=== PATIENT | female | born 1980 | race Caucasian/White ===

== ENCOUNTER 2016-12-17 08:07 | Day surgery (SDC) | payer OTHER ==
[2016-12-16 08:56] VITALS: BMI 33.1
[2016-12-17] MEDS ORDERED: ALBUTEROL SO4 6.7 GM HFA INHALER IH ONE (10:26)
[2016-12-17] MEDS ORDERED: PROPOFOL 20 ML ONE (10:26)
[2016-12-17] MEDS ORDERED: MIDAZOLAM HCL 2 MG/2 ML SINGLE DOSE VIAL ONE (10:27)
--- NOTE | 2016-12-17 10:31 | HP ---
History & Physical Update - History History: No Change - Physical Physical: No Change - Assessment Assessment: No Change - Plan Plan: No Change
[2016-12-17] MEDS ORDERED: BUPIVACAINE HCL/PF 0.5% (5MG/ML) 10 ML VIAL IJ ONE (10:34)
[2016-12-17] MEDS ORDERED: BUPIVACAINE HCL/PF 0.5% (5MG/ML) 10 ML VIAL ONE (10:37)
[2016-12-17] MEDS ORDERED: ceFAZolin SODIUM 1 GM VIAL IVPB ONE (10:54)
[2016-12-17] MEDS ORDERED: ePHEDrine SULFATE 50 MG/1 ML AMPULE ONE (10:56)
[2016-12-17] MEDS ORDERED: ceFAZolin SODIUM 1 GM VIAL ONE (11:06)
[2016-12-17] MEDS ORDERED: DEXAMETHASONE SOD PHOSPHATE 4 MG/1 ML VIAL ONE (11:06)
[2016-12-17] MEDS ORDERED: KETOROLAC TROMETHAMINE 30 MG/1 ML VIAL ONE (11:12)
[2016-12-17] MEDS ORDERED: PROMETHAZINE HCL 25 MG/1 ML VIAL IVPUSH PRN (11:37)
[2016-12-17] MEDS ORDERED: oxyCODONE HCL 5 MG TABLET PO PRN (11:37)
[2016-12-17] MEDS ORDERED: ONDANSETRON 4 MG/2 ML VIAL IVPUSH PRN (11:37)
[2016-12-17] MEDS ORDERED: LACTATED RINGERS SOLUTION 1,000 ML IV SCH (11:45)
--- NOTE | 2016-12-17 11:49 | OP ---
Operative Note - Note: Operative Date: 12/17/16 Pre-Operative Diagnosis: midback mass Operation: Excision, midback mass Implants: fibrfatty submuscular mass Post-Operative Diagnosis: Same as Pre-op Surgeon: Johny Ko Anesthesiologist/CHILD DAY CARE TEACHER: Win Martinez Anesthesia: General (LMA) Specimens Removed: back mass/lipoma Estimated Blood Loss (mls): 2 Operative Report Dictated: Yes
--- NOTE | 2016-12-17 12:19 | OP ---
DATE OF OPERATION: 12/17/2016 PROCEDURE: Excision of left midback mass/lipoma. PREOPERATIVE DIAGNOSIS: Left midback mass/lipoma. POSTOPERATIVE DIAGNOSIS: Left midback mass/lipoma. SURGEON: Johny Ko MD ANESTHESIA: General by laryngeal mask airway. DESCRIPTION OF PROCEDURE: This is a 36-year-old female who presents with a tender, painful mass of the left midback towards the flank. On physical exam, the patient has a 5-cm, ill-defined mass at the left costovertebral angle for which an MRI showed a fibrofatty mass under the paraspinal muscle, so the patient was advised excisional biopsy of the mass, and consent was obtained after discussing the risks, benefits, and alternatives to the procedure. The patient was brought to the operating room and placed in supine position. General anesthesia by laryngeal mask airway was administered. The patient was then placed in right lateral decubitus position. The operative site was prepped and draped in the usual sterile fashion. Using 0.5% Marcaine, local anesthesia was administered to both incision sites. A 5-cm oblique incision following the skin crease was made using scalpel blade No. 15 with dissection carried down to subcutaneous tissue. Further dissection using Bovie cautery was done until the deep Franklyn fascia was entered then exposed the flank muscle for which the mass was palpated. The flank muscle was split using muscle splitting incision. The fibrofatty mass was exposed. This was dissected bluntly using the surgeon's digit combined with Bovie cautery dissection of its attachment to the rib cage. The mass was noted to be about 6 x 5 x 3 cm in size or volume. The operative cavity was inspected, and hemostasis was achieved using Bovie electrocautery. The wound was then closed with interrupted Vicryl 3-0 suture for the subcutaneous layer, interrupted Vicryl 3-0 suture dermis, and continuous Biosyn 4-0 suture for the subcuticular layer. The wound closure was reinforced with Steri-Strips and covered with sterile dressing. The patient was then placed back in supine position and successfully extubated. The patient was transferred to the post anesthesia care unit in satisfactory condition. ESTIMATED BLOOD LOSS: About 2 mL. WOUND CLASS: Clean. Ellie [id number]
[2016-12-17 13:13] VITALS: PULSE 80
[2016-12-17 13:14] VITALS: TEMP 98.2
[2016-12-17 14:41] VITALS: BP 103/54
--- NOTE | 2016-12-18 14:12 | PATH ---
Surgical Pathology Report Patient Name: SHANTAL NELSON [facility]. Rec. #: [id number] /Age/Gender: 1980 (Age: 36) / F Account: [id number] Location: [facility] SURGICAL Taken: 12/17/2016 Received: 12/17/2016 Reported: 12/18/2016 Physicians: Johny Ko M.D. Specimen(s) Received MASS OF LEFT MID BACK Clinical History Lipoma mid back Final Diagnosis SOFT TISSUE, LEFT MID BACK, MASS, EXCISION: MATURE BENIGN ADIPOSE TISSUE CONSISTENT WITH LIPOMA. Electronically Signed Arley So M.D. Gross Description Received in formalin labeled "left mid back mass" is a 6.8 x 5.0 x 3.0 cm portion of yellow, lobulated adipose tissue. Sectioning reveals homogeneous yellow, smooth fat. No areas of hemorrhage or necrosis are identified. [employer] Sales Executive sections are submitted in 3 cassettes. /12/17/2016 saudi/12/17/2016
== END 2016-12-17 14:01 | disposition home or self-care (01) ==
LOC: JASU-SURG 08:07
PROVIDERS: ATTEND Surgery
PROC: 0KBG0ZZ Excision of Left Trunk Muscle, Open Approach (ICD-10-PCS; principal; 2016-12-17 09:30)
DX: D17.1 Benign lipomatous neoplasm of skin and subcutaneous tissue of trunk (principal)
CPT/HCPCS: 84703; 88304-TC; 94760

== ENCOUNTER 2017-03-04 23:28 | Emergency (ER) | payer OTHER ==
--- NOTE | 2017-03-05 00:38 | PDOC ---
History of Present Illness - General Chief Complaint: Urinary Problem Stated Complaint: URINARY PROBLEM Time Seen by Provider: 03/05/17 00:38 History Source: Patient Exam Limitations: No Limitations - History of Present Illness Initial Comments: 03/05/17 00:59 Patient with history of UTI presents with complaint of frequency urgency dysuria for the last 3 weeks. States she has not been able to see her primary care physician for treatment. Denies vomiting or fever. LMP was several weeks ago. Does not believe she is currently . Past History - Past Medical History Allergies/Adverse Reactions: Allergies Allergy/AdvReac Type Severity Reaction Status Date / Time No Known Allergies Allergy Verified 03/05/17 00:41 Home Medications: Ambulatory Orders Ibuprofen 1 tab PO TID PRN #30 tablet 12/17/16 Ibuprofen 800 mg PO TID #30 tablet 03/05/17 Levofloxacin [Levaquin -] 500 mg PO DAILY #4 tablet 03/05/17 Anemia: Yes Asthma: Yes (last attack 07/2013) Cancer: No Cardiac Disorders: No CVA: No COPD: No CHF: No Dementia: No Diabetes: No GI Disorders: No Disorders: No HTN: Yes (w/ 1st ) Hypercholesterolemia: No Liver Disease: No Seizures: No Thyroid Disease: No - Surgical History Orthopedic Surgery: Yes (left ankle surgery) - Reproductive History (#): 6 Para: 5 - Psycho/Social/Smoking Cessation Hx Anxiety: No Suicidal Ideation: No Smoking History: Never smoked Have you smoked in the past 12 months: No Hx Alcohol Use: No Drug/Substance Use Hx: No Substance Use Type: None Hx Substance Use Treatment: No Review of Systems - Review of Systems Able to Perform ROS?: Yes Is the patient limited Korean proficient: No Constitutional: Yes: Symptoms Reported, See HPI. No: Chills, Diaphoresis, Fever , Loss of Appetite, Malaise, Night Sweats, Weakness, Weight Stable HEENTM: Yes: Symptoms Reported, See HPI. No: Eye Pain, Blurred Vision, Tearing , Recent change in vision, Double Vision, Ear Pain, Ocular Prothesis, Ear Discharge, Nose Pain, Nose Congestion, Tinnitus Respiratory: Yes: Symptoms reported, See HPI. No: Cough, Orthopnea, Shortness of Breath, SOB with Exertion, SOB at Rest, Productive cough Cardiac (ROS): Yes: Symptoms Reported, See HPI. No: Chest Pain, Edema, Irregular Heart Rate, Lightheadedness, Palpitations, Syncope ABD/GI: Yes: Symptoms Reported, See HPI. No: Abdominal Distended, Abd. Pain w/ defecation, Blood Streaked Bowels, Constipated, Diarrhea : Yes: Symptoms Reported, See HPI, Burning, Dysuria, Frequency, Flank Pain. No: Discharge, Hematuria, Incontinence, Pain, Urgency Musculoskeletal: Yes: Symptoms Reported, See HPI. No: Back Pain, Gout, Joint Pain, Joint Swelling Integumentary: Yes: Symptoms Reported, See HPI. No: Bruising, Change in Color, Change in Hair/Nails, Flushing, Lesions, Lumps Neurological: Yes: Symptoms reported, See HPI. No: Headache, Numbness, Paresthesia, Pre-Existing Deficit, Seizure Psychiatric: No: Anxiety, Depression, Frequent Crying, Stressors, Sleep Pattern Change Endocrine: Yes: Symptoms Reported, See HPI. No: Excessive Sweating, Flushing, Intolerance to Cold, Intolerance to Heat, Increased Hunger, Increased Thirst, Increased Urine Hematologic/Lymphatic: Yes: Symptoms Reported, See HPI. No: Anemia, Blood Clots , Easy Bleeding, Easy Bruising, Bleeding Diathesis, Lymph Node Abnormalities *Physical Exam - Physical Exam Comments: 03/05/17 00:57 *Physical Exam General Appearance: Yes: Appropriately Dressed. No: Apparent Distress, Intoxicated HEENT: positive: EOMI, DAISY, Normal ENT Inspection, Normal Voice, TMs Normal, Pharynx Normal. negative: Pale Conjunctivae, Photophobia, Scleral Icterus (R), Scleral Icterus (L) Neck: positive: Trachea midline, Normal Thyroid, Supple. negative: Tender, Rigid, Carotid bruit, Stridor, Lymphadenopathy (R), Lymphadenopathy (L), Thyromegaly Respiratory/Chest: positive: Lungs Clear, Normal Breath Sounds. negative: Chest Tender, Respiratory Distress, Accessory Muscle Use, Labored Respiration, RES, Crackles, Rales, Rhonchi, Stridor, Wheezing, Dullness Cardiovascular: positive: Regular Rhythm, Regular Rate, S1, S2. negative: Edema , JVD, Murmur, Bradycardia, Tachycardia Vascular Pulses: Dorsalis-Pedis (R): 2+, Doralis-Pedis (L): 2+ Gastrointestinal/Abdominal: positive: Normal Bowel Sounds, Flat, Soft. negative : Tender, Organomegaly, Pulsatile Mass, Increased Bowel Sounds, Decreased BS, Distended, Guarding, Rebound, Hernia, Hepatomegaly, Spleenomegaly Lymphatic: negative: Adenopathy, Tenderness Musculoskeletal: positive: Normal Inspection. negative: CVA Tenderness, Decreased Range of Motion Extremity: positive: Normal Capillary Refill, Normal Inspection, Normal Range of Motion, Pelvis Stable. negative: Tender, Pedal Edema, Swelling, Erythema Integumentary: positive: Normal Color, Dry, Warm. negative: Cyanotic, Erythema , Jaundice, Rash Neurologic: positive: plant security guard II-XII NML intact, Fully Oriented, Alert, Normal Mood/ Affect, Motor Strength 5/5. negative: EOM Palsy, Facial Droop, Sensory Deficit Medical Decision Making - Medical Decision Making 03/05/17 01:27 Dr. Cardenas: The scribe's documentation has been prepared under my direction and personally reviewed by me in its entirery. I confirm that the note above accurately reflects all work, treatment, procedures, and medical decision making performed by me. *DC/Admit/Observation/Transfer Diagnosis at time of Disposition: Dysuria - Discharge Dispostion Disposition: HOME Condition at time of disposition: Stable Admit: No - Patient Instructions Printed Discharge Instructions: DI for Dysuria -- Adult
[2017-03-05 00:41] VITALS: BP 113/64; PULSE 79; TEMP 97.6; BMI 34.0
[2017-03-05 01:00] LABS: URINE APPEARANCE CLEAR; URINE BILIRUBIN NEGATIVE (NEGATIVE); URINE BLOOD 2+ (NEGATIVE); URINE COLOR YELLOW; URINE GLUCOSE (UA) NEGATIVE (NEGATIVE); URINE KETONE TRACE (NEGATIVE); URINE NITRITE NEGATIVE (NEGATIVE); URINE PROTEIN NEGATIVE (NEGATIVE)
[2017-03-05 01:01] LABS: URINE LEUK ESTERASE 1+ (NEGATIVE)
[2017-03-05] MEDS ORDERED: LEVOFLOXACIN 500 MG TABLET (FP) PO ONE (01:25)
[2017-03-05] MEDS ORDERED: LEVOFLOXACIN 500 MG TABLET (FP) ONE (01:36)
[2017-03-05 03:38] LABS: URINE MUCUS FEW; URINE RBC 9 /hpf (0-3); URINE WBC 66 /hpf (3-5)
== END 2017-03-05 01:40 | disposition home or self-care (01) ==
LOC: JER 23:28
DX: R30.0 Dysuria (principal); Z87.440 Personal history of urinary (tract) infections
CPT/HCPCS: 81003; 81015; 84703; 87086; 87186; 99281-25

== ENCOUNTER 2017-09-24 07:28 | Emergency (ER) | payer OTHER ==
[2017-09-24 07:48] VITALS: TEMP 98.1; BMI 31.9
[2017-09-24] MEDS ORDERED: SODIUM CHLORIDE 1,000 ML IV STA (09:19)
[2017-09-24] MEDS ORDERED: FAMOTIDINE IV 20 MG/12 ML VIAL IVPUSH ONE (09:19)
[2017-09-24] MEDS ORDERED: MAG HYDROX/AL HYDROX/SIMETH 30 ML UNIT-DOSE CUP PO ONE (09:19)
--- NOTE | 2017-09-24 09:36 | PDOC ---
*Physical Exam - Vital Signs Last Vital Signs Temp Pulse Resp BP Pulse Ox 98.1 F 86 18 112/68 99 09/24/17 07:42 09/24/17 07:42 09/24/17 07:42 09/24/17 07:42 09/24/17 07:42 - Physical Exam Comments: 09/24/17 09:36 The patient was examined by [ISABEL Moore] under my direct supervision. I personally evaluated the patient. I concur with the above findings and the plan of care. ED Treatment Course - LABORATORY CBC & Chemistry Diagram: 09/24/17 09:45 09/24/17 09:45 *DC/Admit/Observation/Transfer Diagnosis at time of Disposition: Epigastric abdominal pain - Discharge Dispostion Disposition: HOME Condition at time of disposition: Improved - Prescriptions Prescriptions: Famotidine [Pepcid] 20 mg PO DAILY #14 tablet Mag Hydrox/Al Hydrox/Simeth [Mylanta Suspension -] 30 ml PO Q6H #1 bottle - Referrals Referrals: Toshia Yan [Primary Care Provider] - - Patient Instructions Printed Discharge Instructions: Gastritis Additional Instructions: Take medications as prescribed. Avoid fatty, greasy or spicy foods as may worsen her symptoms. Also avoid caffeine excessive alcohol and NSAIDs (motrin, alleve, advil) use If symptoms recur, follow-up with your PMD - Post Discharge Activity Forms/Work/School Notes: Back to Work
--- NOTE | 2017-09-24 09:37 | PDOC ---
History of Present Illness - General Chief Complaint: Pain Stated Complaint: ABD PAIN Time Seen by Provider: 09/24/17 09:05 History Source: Patient - History of Present Illness Timing/Duration: reports: getting worse Quality: reports: other Abdominal Pain Onset Location: reports: epigastric Pain Radiation: reports: no radiation Past History - Past Medical History Allergies/Adverse Reactions: Allergies Allergy/AdvReac Type Severity Reaction Status Date / Time No Known Allergies Allergy Verified 09/24/17 07:45 Home Medications: Ambulatory Orders Famotidine [Pepcid] 20 mg PO DAILY #14 tablet 09/24/17 Mag Hydrox/Al Hydrox/Simeth [Mylanta Suspension -] 30 ml PO Q6H #1 bottle Anemia: Yes Asthma: Yes (last attack 07/2013) Cancer: No Cardiac Disorders: No CVA: No COPD: No CHF: No Dementia: No Diabetes: No GI Disorders: No Disorders: No HTN: Yes (w/ 1st ) Hypercholesterolemia: No Liver Disease: No Seizures: No Thyroid Disease: No - Surgical History Orthopedic Surgery: Yes (left ankle surgery) - Reproductive History (#): 6 Para: 5 Cervical CA: No Dysfunctional Uterine Bleeding: No Ectopic : No Endometrial CA: No Polycystic Ovaries: No Tubal Ligation: No - Suicide/Smoking/Psychosocial Hx Smoking History: Never smoked Have you smoked in the past 12 months: No Hx Alcohol Use: No Drug/Substance Use Hx: No Substance Use Type: None Hx Substance Use Treatment: No Review of Systems - Review of Systems Constitutional: No: Chills, Fever Respiratory: No: Shortness of Breath Cardiac (ROS): No: Chest Pain ABD/GI: Yes: Diarrhea. No: Nausea, Vomiting : No: Dysuria *Physical Exam - Vital Signs Last Vital Signs Temp Pulse Resp BP Pulse Ox 98.1 F 86 18 112/68 99 09/24/17 07:42 09/24/17 07:42 09/24/17 07:42 09/24/17 07:42 09/24/17 07:42 - Physical Exam General Appearance: Yes: Appropriately Dressed. No: Apparent Distress HEENT: positive: Normal Voice Neck: positive: Supple Respiratory/Chest: negative: Respiratory Distress Gastrointestinal/Abdominal: positive: Normal Bowel Sounds, Tender (to epigatsrium, NT to RUQ), Soft. negative: Distended, Guarding, Rebound Musculoskeletal: negative: CVA Tenderness Integumentary: positive: Dry, Warm Neurologic: positive: Fully Oriented, Alert, Normal Mood/Affect ED Treatment Course - LABORATORY CBC & Chemistry Diagram: 09/24/17 09:45 09/24/17 09:45 Medical Decision Making - Medical Decision Making 09/24/17 09:26 37 yo F, h/o asthma, here w/ epigastric pain w/ diarrhea. Patient states epigastric pain started 4 days ago but was mild and has since been worsening, especially last night. Unable to describe pain, but states pain is constant currently with no exacerbating or alleviating factors. Pt also reports bloating and excessive burping. Patient states she had about 15 episodes of non- bloody watery diarrhea last night. No hematochezia, nausea, vomiting, fever or chills. No history of similar symptoms. Patient states prior to onset of symptoms. She had a quesadilla containing pork and states pork was not cooked all the way through. No sick contacts. See exam ?Gastritis/GERD vs juaquin, less likely pancreatitis -GI cocktail -labs -reassess 09/24/17 13:16 Labs unremarkable. Patient reports feeling significantly better and able to tolerate po, Stable for discharge with meds and PMD follow-up *DC/Admit/Observation/Transfer Diagnosis at time of Disposition: Epigastric abdominal pain - Discharge Dispostion Condition at time of disposition: Improved - Prescriptions Prescriptions: Famotidine [Pepcid] 20 mg PO DAILY #14 tablet Mag Hydrox/Al Hydrox/Simeth [Mylanta Suspension -] 30 ml PO Q6H #1 bottle - Referrals Referrals: Toshia Yan [Primary Care Provider] - - Patient Instructions Printed Discharge Instructions: Gastritis Additional Instructions: Take medications as prescribed. Avoid fatty, greasy or spicy foods as may worsen her symptoms. Also avoid caffeine excessive alcohol and NSAIDs (motrin, alleve, advil) use If symptoms recur, follow-up with your PMD - Post Discharge Activity
[2017-09-24] MEDS ORDERED: MAG HYDROX/AL HYDROX/SIMETH 30 ML UNIT-DOSE CUP ONE (09:53)
[2017-09-24] MEDS ORDERED: FAMOTIDINE 20 MG/50 ML IVPB 20 MG/50 ML MG IVPB ONE (09:53)
[2017-09-24 10:02] LABS: BASO % 0.4 % (0-2.0); EOS % 0.3 % (0-4.5); HEMATOCRIT 39.1 % (32.4-45.2); HEMOGLOBIN 12.4 GM/dL (10.7-15.3); MCH 26.9 pg (25.7-33.7); MCHC 31.7 g/dl (32.0-36.0); MEAN CELL VOLUME 84.9 fl (80-96); NEUT % 83.3 % (42.8-82.8); PLATELET COUNT 277 K/MM3 (134-434); RBC 4.61 M/mm3 (3.60-5.2); RDW 13.9 % (11.6-15.6); WHITE BLOOD COUNT 11.9 K/mm3 (4.0-10.0)
[2017-09-24 10:38] LABS: URINE APPEARANCE CLEAR; URINE BILIRUBIN NEGATIVE (NEGATIVE); URINE BLOOD 2+ (NEGATIVE); URINE COLOR YELLOW; URINE GLUCOSE (UA) NEGATIVE (NEGATIVE); URINE KETONE NEGATIVE (NEGATIVE); URINE LEUK ESTERASE NEGATIVE (NEGATIVE); URINE NITRITE NEGATIVE (NEGATIVE); URINE PROTEIN NEGATIVE (NEGATIVE); URINE UROBILINOGEN NEGATIVE mg/dL (0.2-1.0)
[2017-09-24 10:49] LABS: EPI CELLS RARE /HPF (FEW); URINE MUCUS RARE
[2017-09-24] MEDS ORDERED: ONDANSETRON 4 MG/2 ML VIAL IVPUSH ONE (11:17)
[2017-09-24 12:46] LABS: CALCIUM 8.8 mg/dL (8.5-10.1); CHLORIDE 107 mmol/L (98-107); POTASSIUM 4.8 mmol/L (3.5-5.1); SODIUM 136 mmol/L (136-145)
[2017-09-24 12:50] LABS: ALBUMIN 3.9 g/dl (3.4-5.0); ANION GAP 8 (8-16); BLOOD UREA NITROGEN 16 mg/dL (7-18); CO2 21 mmol/L (21-32); CREATININE 0.8 mg/dL (0.55-1.02); GLUCOSE,RANDOM 123 mg/dL (74-106); SGOT/AST 15 U/L (15-37); SGPT/ALT 26 U/L (12-78)
[2017-09-24 12:52] LABS: ALK PHOS 83 U/L (45-117); BILIRUBIN,TOTAL 0.3 mg/dL (0.2-1.0); LIPASE 219 U/L (73-393); TOT PROT 7.8 g/dl (6.4-8.2)
[2017-09-24] MEDS ORDERED: ONDANSETRON 4 MG/2 ML VIAL ONE (12:52)
[2017-09-24 13:54] VITALS: BP 114/59; PULSE 80
--- NOTE | 2017-09-24 13:55 | PDOC ---
*Physical Exam - Vital Signs Last Vital Signs Temp Pulse Resp BP Pulse Ox 98.1 F 80 18 114/59 99 09/24/17 07:42 09/24/17 13:53 09/24/17 13:53 09/24/17 13:53 09/24/17 13:53 ED Treatment Course - LABORATORY CBC & Chemistry Diagram: 09/24/17 09:45 09/24/17 09:45 - ADDITIONAL ORDERS Additional order review: Laboratory Results 09/24/17 09/24/17 09/24/17 10:30 09:45 09:45 Sodium 136 Potassium 4.8 Chloride 107 Carbon Dioxide 21 Anion Gap 8 BUN 16 Creatinine 0.8 Creat Clearance w eGFR > 60 Random Glucose 123 H Calcium 8.8 Total Bilirubin 0.3 AST 15 ALT 26 Alkaline Phosphatase 83 Total Protein 7.8 Albumin 3.9 Lipase 219 Serum , Qual Negative Urine Color Yellow Urine Appearance Clear Urine pH 5.0 Ur Specific [place] 1.030 Urine Protein Negative Urine Glucose (UA) Negative Urine Ketones Negative Urine Blood 2+ H Urine Nitrite Negative Urine Bilirubin Negative Urine Urobilinogen Negative Ur Leukocyte Esterase Negative Urine WBC (Auto) 1 Urine RBC (Auto) 11 Ur Epithelial Cells Rare Urine Mucus Rare 09/24/17 09:45 RBC 4.61 MCV 84.9 MCHC 31.7 L RDW 13.9 MPV 9.0 Neutrophils % 83.3 H Lymphocytes % 11.0 D Monocytes % 5.0 Eosinophils % 0.3 Basophils % 0.4 - Medications Given in the ED: ED Medications Discontinued Medications Generic Name Dose Route Start Last Admin Trade Name Freq PRN Reason Stop Dose Admin Al Hydroxide/Mg Hydroxide 30 ml 09/24/17 09:19 09/24/17 09:56 Mylanta Oral Suspension - PO 09/24/17 09:20 30 ml ONCE ONE Administration Famotidine 20 mg in 12 mls @ 144 mls/hr 09/24/17 09:19 09/24/17 09:58 Pepcid 20 Mg/12 Ml Push IVPUSH 09/24/17 09:23 144 mls/hr ONCE ONE Administration Sodium Chloride 1,000 mls @ 1,000 mls/hr 09/24/17 09:19 09/24/17 09:58 Normal Saline - IV 09/24/17 10:18 1,000 mls/hr ASDIR STA Administration Ondansetron HCl 4 mg 09/24/17 11:17 09/24/17 12:55 Zofran Injection IVPUSH 09/24/17 11:18 4 mg ONCE ONE Administration *DC/Admit/Observation/Transfer Diagnosis at time of Disposition: Epigastric abdominal pain - Discharge Dispostion Condition at time of disposition: Improved - Prescriptions Prescriptions: Famotidine [Pepcid] 20 mg PO DAILY #14 tablet Mag Hydrox/Al Hydrox/Simeth [Mylanta Suspension -] 30 ml PO Q6H #1 bottle - Referrals Referrals: Tosiha Yan [Primary Care Provider] - - Patient Instructions Printed Discharge Instructions: Gastritis Additional Instructions: Take medications as prescribed. Avoid fatty, greasy or spicy foods as may worsen her symptoms. Also avoid caffeine excessive alcohol and NSAIDs (motrin, alleve, advil) use If symptoms recur, follow-up with your PMD - Post Discharge Activity Forms/Work/School Notes: Back to Work
== END 2017-09-24 13:57 | disposition home or self-care (01) ==
LOC: JER 07:28
DX: R10.13 Epigastric pain (principal); J45.909 Unspecified asthma, uncomplicated
CPT/HCPCS: 36415; 80053; 81003; 81015; 83690; 84703; 85025; 99284-25

== ENCOUNTER 2017-11-25 13:35 | Emergency (ER) | payer OTHER ==
[2017-11-25 13:41] VITALS: TEMP 98.7; BMI 34.7
--- NOTE | 2017-11-25 14:30 | PDOC ---
History of Present Illness - General Chief Complaint: Headache Stated Complaint: HEADACHE Time Seen by Provider: 11/25/17 14:30 - History of Present Illness Initial Comments: 37 year old female with PH of asthma and recent lipoma removal (6 months prior ) presenting with two months of right sided crampy headache that she states is worse with cough, bending over, and presents with right sided visual blurriness when reading on her computer. Her headache is crampy 3/10-8/10 and slightly improved with Tylenol and ibuprofen but she never achieves complete relief. She also admits to some nausea for the past two months and has used an antiemetic prescribed by Dr. Yan's She also complains of leg cramps on her right side which has been there for about a year or more. 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 Denies fevers, chills vomiting, diarrhea, syncope, hemoptysis, or urinary complaints. Her LMP as 11/16/17 and she admits that it came slightly earlier this month. 11/25/17 14:51 Past History - Past Medical History Allergies/Adverse Reactions: Allergies Allergy/AdvReac Type Severity Reaction Status Date / Time No Known Allergies Allergy Verified 11/25/17 13:36 Home Medications: Ambulatory Orders NK [No Known Home Medication] 11/25/17 Anemia: Yes Asthma: Yes (last attack 07/2013) Cancer: No Cardiac Disorders: No CVA: No COPD: No CHF: No Dementia: No Diabetes: No GI Disorders: No Disorders: No HTN: Yes (w/ 1st (Gestational)) Hypercholesterolemia: No Liver Disease: No Seizures: No Thyroid Disease: No - Surgical History Orthopedic Surgery: Yes (left ankle surgery) - Reproductive History (#): 6 Para: 5 Cervical CA: No Dysfunctional Uterine Bleeding: No Ectopic : No Endometrial CA: No Polycystic Ovaries: No Tubal Ligation: No - Immunization History Immunization Up to Date: Yes - Suicide/Smoking/Psychosocial Hx Smoking History: Never smoked Have you smoked in the past 12 months: No Information on smoking cessation initiated: No Hx Alcohol Use: No Drug/Substance Use Hx: No Substance Use Type: None Hx Substance Use Treatment: No Review of Systems - Review of Systems Constitutional: Yes: Loss of Appetite. No: Chills, Diaphoresis, Fever, Weakness HEENTM: Yes: Blurred Vision, Recent change in vision. No: Double Vision Respiratory: No: Cough, Shortness of Breath, Wheezing Cardiac (ROS): No: Chest Pain, Edema, Irregular Heart Rate ABD/GI: Yes: Nausea, Poor Appetite. No: Diarrhea, Vomiting, Indigestion, Tarry Stools : No: Burning, Dysuria, Discharge Musculoskeletal: Yes: Muscle Pain. No: Back Pain, Muscle Weakness Integumentary: No: Bruising, Erythema, Flushing, Lesions, Lumps Neurological: Yes: Headache. No: Numbness, Paresthesia, Tingling, Tremors Endocrine: No: Excessive Sweating, Flushing, Increased Thirst Hematologic/Lymphatic: No: Anemia, Easy Bleeding, Easy Bruising *Physical Exam - Vital Signs Last Vital Signs Temp Pulse Resp BP Pulse Ox 98.7 F 69 17 114/73 99 11/25/17 13:37 11/25/17 13:37 11/25/17 13:37 11/25/17 13:37 11/25/17 13:37 - Physical Exam General Appearance: Yes: Nourished, Appropriately Dressed. No: Apparent Distress HEENT: positive: EOMI, DAISY, Normal ENT Inspection, Normal Voice, Pharynx Normal , Other (Visual acuity 20/20 in eyes bilaterally). negative: Lesions (No palpable or tender chord on scalp) Neck: positive: Trachea midline, Normal Thyroid, Supple. negative: Tender, Rigid Respiratory/Chest: positive: Lungs Clear, Normal Breath Sounds. negative: Chest Tender, Respiratory Distress, Accessory Muscle Use Cardiovascular: positive: Regular Rhythm, Regular Rate Gastrointestinal/Abdominal: positive: Normal Bowel Sounds, Flat, Soft. negative : Tender Lymphatic: negative: Adenopathy, Tenderness Musculoskeletal: positive: Normal Inspection. negative: Decreased Range of Motion, Muscle Spasm Extremity: positive: Normal Capillary Refill, Normal Inspection, Normal Range of Motion, Pelvis Stable. negative: Tender Integumentary: positive: Normal Color, Dry, Warm Neurologic: positive: prep cook II-XII NML intact, Fully Oriented, Alert, Normal Mood/ Affect, Normal Response, Motor Strength 5/5 Medical Decision Making - Medical Decision Making Patient presenting with concerning headache symptoms (worse when bending over, worse when coughing, and constant daily pain for two months). CT head ruled out intracranial mass or acute bleed. Neuro exam completely WNL and urine showing 2 + blood but patient recently ceased her menstrual cycle and admits to some occasional spotting. Headache almost comletely improved with tylenol 975. Will DC with Tylenol use instructions and neurology follow up. 11/25/17 17:58 *DC/Admit/Observation/Transfer Diagnosis at time of Disposition: Headache Qualifiers: Headache type: new daily persistent Qualified Code(s): G44.52 - New daily persistent headache (NDPH) - Discharge Dispostion Disposition: HOME Condition at time of disposition: Improved Admit: No - Referrals Referrals: Toshia Yan [Primary Care Provider] - Shaun Cross MD [Staff Physician] - - Patient Instructions Printed Discharge Instructions: DI for Headache Additional Instructions: Your headache improved with Tylenol. Please use Tylenol and ibuprofen at home. Our CT did not show any mass or bleed in your head, Please follow up with the neurologist (Dr. Cross). Please return to the ED if you have new or worsening symptoms. - Post Discharge Activity Forms/Work/School Notes: Back to Work
[2017-11-25] MEDS ORDERED: ACETAMINOPHEN 500 MG TABLET (FP) PO ONE (14:45)
[2017-11-25] MEDS ORDERED: ACETAMINOPHEN 325 MG TABLET (FP) ONE (14:56)
[2017-11-25 15:40] LABS: HCG,QUALITATIVE URINE NEGATIVE
[2017-11-25 15:41] LABS: URINE APPEARANCE CLEAR; URINE BILIRUBIN NEGATIVE (<2.0 mg/dL); URINE BLOOD 2+ (NEGATIVE); URINE COLOR STRAW; URINE GLUCOSE (UA) NEGATIVE (NEGATIVE); URINE KETONE NEGATIVE (NEGATIVE); URINE LEUK ESTERASE NEGATIVE (NEGATIVE); URINE NITRITE NEGATIVE (NEGATIVE); URINE PROTEIN NEGATIVE (NEGATIVE); URINE UROBILINOGEN NEGATIVE mg/dL (0.2-1.0)
[2017-11-25 16:04] LABS: EPI CELLS RARE /HPF (FEW); URINE MUCUS RARE
--- NOTE | 2017-11-25 16:38 | PDOC ---
Attending Attestation - Resident Resident Name: Nidia Henry - ED Attending Attestation I have performed the following: I have examined & evaluated the patient, The case was reviewed & discussed with the resident, I agree w/resident's findings & plan - HPI HPI: 11/25/17 16:36 37-year-old female with several month history of daily and constant headache, self treated with Tylenol and Motrin presents with increasing headache. No injury, no fevers or chills, headache is described as mostly right-sided and throbbing, not associated with neck stiffness or focal deficit or vomiting. - Physicial Exam PE: 11/25/17 16:37 Vital signs normal Urine negative Neurological exam is nonfocal - Medical Decision Making 11/25/17 16:37 Patient seen and evaluated with the resident. I agree with the overall evaluation, assessment, and management with the following summary of visit: 37-year-old female with ongoing headache, some positional changes but no other red flags on history or physical exam. Question primary type headache versus idiopathic intracranial hypertension, low suspicion for bleed or infection. CT head given no imaging and ongoing headache Oral Tylenol Reassess, neurology referral
[2017-11-25 17:59] VITALS: BP 93/43; PULSE 83
== END 2017-11-25 18:17 | disposition home or self-care (01) ==
LOC: JER 13:35
DX: G44.52 New daily persistent headache (NDPH) (principal); Z87.09 Personal history of other diseases of the respiratory system
CPT/HCPCS: 70450-TC; 81003; 81015; 84703; 99282-25

== ENCOUNTER 2018-09-04 11:36 | Emergency (ER) | payer OTHER ==
[2018-09-04 11:55] VITALS: BP 107/52; PULSE 86; TEMP 98.8; BMI 31.2
--- NOTE | 2018-09-04 12:19 | PDOC ---
History of Present Illness - General Chief Complaint: Cold Symptoms Stated Complaint: COUGHING/FEVER Time Seen by Provider: 09/04/18 11:58 History Source: Patient Exam Limitations: No Limitations - History of Present Illness Initial Comments: 09/04/18 12:14 HISTORY OF PRESENT ILLNESS: 38-year-old woman who presents emergency department for evaluation of sinus congestion and dry cough for the past 3 months. Patient was seen by her primary doctor 3 days ago and given a prescription for Augmentin. She is also taking Robitussin to help with the cough. Patient has made an appointment with her ENT specialist Dr. estevez at 2:00 this afternoon. No recent travel or sick contacts. PAST MEDICAL HISTORY: Frequent sinusitis SURGICAL HISTORY: Denies ALLERGIES: No known drug allergies REVIEW OF SYSTEMS General/Constitutional: Denies fever or chills. Denies weakness, weight change. HEENT: Denies change in vision. Denies ear pain or discharge. Denies sore throat. Cardiovascular: Denies chest pain or shortness of breath. Respiratory: Dry cough. Denies wheezing, or hemoptysis. Gastrointestinal: Denies nausea, diarrhea or constipation. Denies rectal bleeding. Occasional posttussive vomiting. Genitourinary: Denies dysuria, frequency, or change in urination. Musculoskeletal: Denies joint or muscle swelling or pain. Denies neck or back pain. Skin and breasts: Denies rash or easy bruising. Neurologic: Denies headache, vertigo, loss of consciousness, or loss of sensation. Psychiatric: Denies depression or anxiety. Endocrine: Denies increased thirst. Denies abnormal weight change. Hematologic/Lymphatic: Denies anemia, easy bleeding, or history of blood clots. Allergic/Immunologic: Denies hives or skin allergy. Denies latex allergy. PHYSICAL EXAM General Appearance: Well-appearing, appropriately dressed. No apparent distress , no intoxication. HEENT: EOMI, PERRLA, normal ENT inspection, normal voice, TMs normal, pharynx normal. No conjunctival pallor. No photophobia, scleral icterus. TTP over maxillary sinuses. Neck: Supple. Trachea midline. No tenderness, rigidity, carotid bruit, stridor , lymphadenopathy, or thyromegaly. Respiratory/Chest: Lungs CTAB. No shortness of breath, chest tenderness, respiratory distress, accessory muscle use. No crackles, rales, rhonchi, stridor , wheezing, dullness Cardiovascular: RRR. S1, S2. No JVD, murmur, bradycardia, tachycardia. Vascular Pulses: Dorsalis-Pedis (R): 2+, Dorsalis-Pedis (L): 2+ Integumentary: Appropriate color, dry, warm. No cyanosis, erythema, jaundice or rash Neurologic: recyclable materials sorter II-XII intact. Fully oriented, alert. Appropriate mood/affect. Motor strength 5/5. No appreciable EOM palsy, facial droop or sensory deficit. Past History - Past Medical History Allergies/Adverse Reactions: Allergies Allergy/AdvReac Type Severity Reaction Status Date / Time No Known Allergies Allergy Verified 09/04/18 11:55 Home Medications: Ambulatory Orders Benzonatate [Tessalon Pearls -] 200 mg PO TID #42 cap 09/04/18 Anemia: Yes Asthma: Yes (last attack 07/2013) Cancer: No Cardiac Disorders: No CVA: No COPD: No CHF: No Dementia: No Diabetes: No GI Disorders: No Disorders: No HTN: Yes (w/ 1st (Gestational)) Hypercholesterolemia: No Liver Disease: No Seizures: No Thyroid Disease: No - Surgical History Orthopedic Surgery: Yes (left ankle surgery) - Reproductive History (#): 6 Para: 5 Cervical CA: No Dysfunctional Uterine Bleeding: No Ectopic : No Endometrial CA: No Polycystic Ovaries: No Tubal Ligation: No - Immunization History Immunization Up to Date: Yes - Suicide/Smoking/Psychosocial Hx Smoking History: Never smoked Have you smoked in the past 12 months: No Information on smoking cessation initiated: No Hx Alcohol Use: No Drug/Substance Use Hx: No Substance Use Type: None Hx Substance Use Treatment: No *Physical Exam - Vital Signs Last Vital Signs Temp Pulse Resp BP Pulse Ox 98.8 F 86 19 107/52 L 98 09/04/18 11:51 09/04/18 11:51 09/04/18 11:51 09/04/18 11:51 09/04/18 11:51 Moderate Sedation - Procedure Monitoring Vital Signs: Procedure Monitoring Vital Signs Temperature 98.8 F 09/04/18 11:51 Pulse Rate 86 09/04/18 11:51 Respiratory Rate 19 09/04/18 11:51 Blood Pressure 107/52 L 09/04/18 11:51 O2 Sat by Pulse Oximetry (%) 98 09/04/18 11:51 Medical Decision Making - Medical Decision Making 09/04/18 12:16 A/P: 38-year-old woman with sinusitis and irritated airways Continue current antibiotics Prescription for Tessalon Perles Discharge home to follow-up with ENT as scheduled *DC/Admit/Observation/Transfer Diagnosis at time of Disposition: Irritable airways Sinusitis Qualifiers: Sinusitis location: maxillary Chronicity: chronic Qualified Code(s): J32.0 - Chronic maxillary sinusitis - Discharge Dispostion Disposition: HOME Condition at time of disposition: Stable Decision to Admit order: No - Prescriptions Prescriptions: Benzonatate [Tessalon Pearls -] 200 mg PO TID #42 cap - Referrals Referrals: Rajani Aguirre MD [Primary Care Provider] - - Patient Instructions Additional Instructions: Rest, drink lots of fluids: Teas, water, soups, Pedialyte Saltwater gargles Steamy showers/seem to face break up mucus Avoid contact with others until fevers and cough resolved Lots of handwashing and good hygiene Continue [id number] medications for symptomatic relief Tylenol or Motrin for fever and pain Tessalon Perles 200mg 3 times a day as needed for coughing. Continue antibiotics as previously prescribed. Followup with private physician in one to 2 days as needed Keep appointment with ENT today. Return to emergency department for worsened symptoms, fevers, dehydration - Post Discharge Activity
== END 2018-09-04 12:23 | disposition home or self-care (01) ==
LOC: JERFT 11:36
DX: J32.0 Chronic maxillary sinusitis (principal)
CPT/HCPCS: 99281-25

== ENCOUNTER 2018-10-29 12:08 | Emergency (ER) | payer OTHER ==
[2018-10-29 12:33] VITALS: BP 103/53; PULSE 91; TEMP 98.7; BMI 30.9
--- NOTE | 2018-10-29 13:31 | PDOC ---
Attending Attestation - Resident Resident Name: Milagros Mascorro - [facility] HPI: 10/29/18 13:48 The patient is a 38 year old female, with a significant past medical history of asthma and preeclampsia (during first ; not since then) who is (6 live children, ~8 wks ), who presents to the emergency department with pain to her left ankle and left lateral thigh, as well as, mild LLQ pain s/p falling down 15 escalator steps landing on outstretched hands just prior to her ED arrival. She reports the worst pain in her left ankle. The patient denies chest pain, shortness of breath, headache and dizziness. The patient denies fever, chills, nausea, vomit, diarrhea and constipation. The patient denies dysuria, frequency, urgency and hematuria. Allergies: NKDA - Physicial Exam PE: 10/29/18 15:52 GENERAL: Awake, alert, and fully oriented, in no acute distress HEAD: No signs of trauma EYES: PERRLA, EOMI, sclera anicteric, conjunctiva clear ENT: Auricles normal inspection, hearing grossly normal, nares patent, oropharynx clear without exudates. Moist mucosa NECK: Normal ROM, supple, no lymphadenopathy, JVD, or masses LUNGS: Breath sounds equal, clear to auscultation bilaterally. No wheezes, and no crackles HEART: Regular rate and rhythm, normal S1 and S2, no murmurs, rubs or gallops ABDOMEN: Soft, nontender, normoactive bowel sounds. No guarding, no rebound. No masses EXTREMITIES: (+) contusion on right ortiz, contusion over left lateral malleolus which is tender without deformity. Minimally tender to deep palpation. Normal range of motion, no edema. No clubbing or cyanosis. No cords, erythema, NEUROLOGICAL: Cranial nerves II through XII grossly intact. Normal speech, normal gait SKIN: Warm, Dry, normal turgor, no rashes or lesions noted. Attestations - Attestations 10/29/18 13:49 Documentation prepared by Nadia Villatoro, acting as medical investigator for Jacqui Fontenot MD
[2018-10-29] MEDS ORDERED: ACETAMINOPHEN 500 MG TABLET (FP) PO ONE (13:39)
--- NOTE | 2018-10-29 13:40 | PDOC ---
History of Present Illness - General Chief Complaint: Injury Stated Complaint: 8 WEEK /FALL Time Seen by Provider: 10/29/18 12:30 History Source: Patient Exam Limitations: No Limitations - History of Present Illness Initial Comments: 10/29/18 13:35 38YOF with h/o asthma and preeclampsia (during first ; not since then) who is (6 live children, ~8 wks ) and who p/w left ankle, left lateral thigh, and mild LLQ pain ever since falling down an escalator (states 15 steps but braced fall with both hands) just [employer]. She denies any preceding symptoms, did not hit her head or lose consciousness, and has been ambulatory since then albeit with increased pain. She did not take medications for the pain. She has already had an US for this and has established OB care, and has no known complications at this time. Denies vaginal bleeding, hematuria, or other related symptoms. Past History - Past Medical History Allergies/Adverse Reactions: Allergies Allergy/AdvReac Type Severity Reaction Status Date / Time No Known Allergies Allergy Verified 10/29/18 12:33 Anemia: Yes Asthma: Yes (last attack 07/2013) Cancer: No Cardiac Disorders: No CVA: No COPD: No CHF: No Dementia: No Diabetes: No GI Disorders: No Disorders: No HTN: Yes (w/ 1st (Gestational)) Hypercholesterolemia: No Liver Disease: No Seizures: No Thyroid Disease: No - Surgical History Orthopedic Surgery: Yes (left ankle surgery) - Reproductive History (#): 6 Para: 5 Cervical CA: No Dysfunctional Uterine Bleeding: No Ectopic : No Endometrial CA: No Polycystic Ovaries: No Tubal Ligation: No - Immunization History Immunization Up to Date: Yes - Suicide/Smoking/Psychosocial Hx Smoking History: Never smoked Have you smoked in the past 12 months: No Information on smoking cessation initiated: No Hx Alcohol Use: No Drug/Substance Use Hx: No Substance Use Type: None Hx Substance Use Treatment: No Review of Systems - Review of Systems Able to Perform ROS?: Yes Comments:: 10/29/18 13:40 GEN: no fever, chills, malaise, generalized weakness, or weight change HEENT: no ear pain, sore throat, vision change, or eye pain CV: no chest pain, palpitations, lightheadedness, syncope, or edema RESP: no cough, wheezing, or SOB GI: abdominal pain, no nausea, vomiting, diarrhea, constipation, or white/black/ bloody stool : no dysuria, hematuria, incontinence, retention, bleeding, or discharge MSK: left thigh pain, left ankle pain/swelling, right ortiz pain, no neck/back pain, or muscle weakness NEURO: no headache, seizure, vertigo, numbness, tingling, or focal weakness PSYCH: no substance use, no behavior change SKIN: no jaundice, no rash ROS otherwise negative except as noted in HPI *Physical Exam - Vital Signs Last Vital Signs Temp Pulse Resp BP Pulse Ox 98.7 F 91 H 17 103/53 L 100 10/29/18 12:30 10/29/18 12:30 10/29/18 12:30 10/29/18 12:30 10/29/18 12:30 - Physical Exam Comments: 10/29/18 13:41 GENERAL: uncomfortable but otherwise well-appearing, walks to the exam room and standing in the room when I enter, A/Ox4, no distress, answers questions appropriately HEENT: PERRLA, EOMI, moist mucous membranes NECK/BACK: no midline ttp, no spinal stepoff or deformity, no hematoma, full ROM , neck supple CARDIOVASCULAR: regular rate/rhythm, normal S1S2, no MGR, strong peripheral pulses, capillary refill <2 seconds, extremities wwp, no edema LUNGS/RESPIRATORY: no respiratory distress, CTAB GI/ABDOMEN: symmetric [id number], normoactive BS, soft, minimal low LLQ and left suprapubic ttp, no hematoma, no midline pulsatile masses : no CVA tenderness EXTREMITIES: right distal medial lower leg developing ecchymosis overlying distal 1/3 of tibia which is about 4x3cm with superficial overlying abrasion, also left lateral ankle developing ecchymosis with mild ttp overlying the lateral malleolus but no ttp midfoot or base of 5th metatarsal or medial malleolus SKIN: warm and dry, no pallor, no jaundice, no rash, no bruising, no skin breakdown, no cuts, no lesions NEUROLOGICAL: GCS 15, CN II-XII grossly intact, 5/5 strength proximally and distally, no facial droop ED Treatment Course - RADIOLOGY Radiology Studies Ordered: Category Date Time Status TRANSVAGINAL US PREG [US] Stat Ultrasound 10/29/18 13:28 Ordered Medical Decision Making - Medical Decision Making 10/29/18 13:57 Pt p/w ankle pain/swelling worsening since an injury to the area (fell on escalator just [employer]). Also mild LLQ pain, mild left thigh bruise, right ortiz bruise. Initial Vital Signs Temp Pulse Resp BP Pulse Ox 98.7 F 91 H 17 103/53 L 100 10/29/18 12:30 10/29/18 12:30 10/29/18 12:30 10/29/18 12:30 10/29/18 12:30 Exam: ankle with significant swelling, pain in malleolar zone, tenderness edge of lateral and medial malleolus, inability to walk 4 steps for exam. DDX IBNLT: ankle sprain/strain, tendon or ligament rupture/tear, fracture, dislocation, contusion, blood vessel injury, nerve injury, etc. W/U ordered: ankle/foot XR, TVUS, UA TX ordered: Tylenol Laboratory Tests 10/29/18 14:00 Urine Color Yellow Urine Appearance Clear Urine pH 6.0 Ur Specific [place] 1.021 Urine Protein Negative Urine Glucose (UA) Negative Urine Ketones Negative Urine Blood 1+ H Urine Nitrite Negative Urine Bilirubin Negative Urine Urobilinogen 1.0 Ur Leukocyte Esterase Negative Urine WBC (Auto) 1 Urine RBC (Auto) 10 Urine Casts (Auto) 3 U Epithel Cells (Auto) 5.3 Urine Bacteria (Auto) 7.4 Ankle/Foot XR: STS but no obvious fracture or dislocation, otherwise nothing acute. TVUS: 8 wk 1 day (by croun-rump length) with FHR within normal limits, IUP, no free fluid. DISCHARGE Patients ankle and foot placed in air splint. Subsequently neurovascularly intact distally, good capillary refill. Pt is given crutches sized to their height and instructed to be WBAT. They are also instructed to use RICE therapy and OTC analgesics. Workup is not concerning for emergency-level pathology at this time. The Pt is appropriate for discharge with close outpatient follow up. They are comfortable with this plan and will follow up with their primary care provider in 1-3 days. Specific return precautions are discussed and they will come back to the ER if necessary. *DC/Admit/Observation/Transfer Diagnosis at time of Disposition: Fall (on)(from) escalator, initial encounter Left ankle injury Qualifiers: Encounter type: initial encounter Qualified Code(s): S99.912A - Unspecified injury of left ankle, initial encounter - Discharge Dispostion Disposition: HOME Condition at time of disposition: Stable Decision to Admit order: No - Referrals Referrals: [facility] at [place] [Provider Group] - Patient Instructions Printed Discharge Instructions: DI for Ankle Sprain Additional Instructions: You were seen in the ER for an ankle injury. We did an exam and x-rays, which showed no new concerning findings. We placed your foot and ankle in a splint which you can wear for comfort as you need it. You can bear weight on the ankle/ foot as tolerated (as your pain allows) and you can use crutches if needed. After our assessment, we do not believe you are having a medical emergency at this time, and we believe you are safe to go home. Use rice therapy (rest, ice, compression, elevation) and take tylenol or motrin for the pain. We are giving you referral information for our orthopedist, so if you have continued symptoms in 1-2 weeks, please feel free to follow up with them. Please also follow up with your primary care provider in 1-3 days. Call their clinic as soon as possible, tell them you were seen in the er, and tell them you need an appointment. If you have any new or worsening symptoms, especially worsening or severe pain of the ankle/foot/toes, or numbness, tingling, weakness, redness, or paleness of the area, please come back to the ER at any time (24 hours a day) . If you are having severe or life threatening symptoms, or symptoms that make it unsafe to drive or have someone drive you, please call 911. Print Language: POLISH - Post Discharge Activity Forms/Work/School Notes: Back to Work
[2018-10-29] MEDS ORDERED: ACETAMINOPHEN 325 MG TABLET (FP) ONE (13:43)
[2018-10-29 14:37] LABS: EPI CELLS 5.3 /HPF (0-5); URINE APPEARANCE CLEAR; URINE BACTERIA 7.4 /hpf (NEGATIVE); URINE BILIRUBIN NEGATIVE (NEGATIVE); URINE CASTS 3 /hpf (0-8); URINE COLOR YELLOW; URINE GLUCOSE (UA) NEGATIVE (NEGATIVE); URINE KETONE NEGATIVE (NEGATIVE); URINE LEUK ESTERASE NEGATIVE (NEGATIVE); URINE NITRITE NEGATIVE (NEGATIVE); URINE PROTEIN NEGATIVE (NEGATIVE); URINE RBC 10 /hpf (0-4); URINE WBC 1 /hpf (0-5)
== END 2018-10-29 18:39 | disposition home or self-care (01) ==
LOC: JER 12:08
DX: S99.812A Other specified injuries of left ankle, initial encounter (principal); W10.0XXA Fall (on)(from) escalator, initial encounter; Y93.89 Activity, other specified; Y92.89 Other specified places as the place of occurrence of the external cause; Y99.8 Other external cause status
CPT/HCPCS: 73610-TC-LT-FY; 73630-TC-LT; 76817-TC; 81003; 99281-25

== ENCOUNTER 2018-11-28 19:30 | Emergency (ER) | payer OTHER ==
[2018-11-28 20:01] VITALS: BP 103/59; PULSE 95; TEMP 97.9; BMI 31.6
[2018-11-28] MEDS ORDERED: LACTATED RINGERS SOLUTION 1000 ML INFUS.BAG IV ONE (20:57)
[2018-11-28] MEDS ORDERED: MAG HYDROX/AL HYDROX/SIMETH 30 ML UNIT-DOSE CUP PO ONE (21:30)
[2018-11-28] MEDS ORDERED: FAMOTIDINE 20 MG/50 ML IVPB 20 MG/50 ML MG IVPB ONE ×2 (21:30→21:55)
[2018-11-28] MEDS ORDERED: ACETAMINOPHEN 325 MG TABLET (FP) PO ONE (21:30)
[2018-11-28 21:31] LABS: BASO % 0.7 % (0-2.0); EOS % 1.2 % (0-4.5); HEMATOCRIT 38.1 % (32.4-45.2); HEMOGLOBIN 12.5 GM/dL (10.7-15.3); LYMPH % 27.9 % (8-40); MCH 28.1 pg (25.7-33.7); MCHC 32.9 g/dl (32.0-36.0); MEAN CELL VOLUME 85.1 fl (80-96); MEAN PLT VOLUME 9.1 fl (7.5-11.1); MONO % 7.8 % (3.8-10.2); NEUT % 62.4 % (42.8-82.8); PLATELET COUNT 253 K/MM3 (134-434); RBC 4.47 M/mm3 (3.60-5.2); WHITE BLOOD COUNT 9.6 K/mm3 (4.0-10.0)
[2018-11-28] MEDS ORDERED: MAG HYDROX/AL HYDROX/SIMETH 30 ML UNIT-DOSE CUP ONE (21:54)
[2018-11-28] MEDS ORDERED: ACETAMINOPHEN 325 MG TABLET (FP) ONE (21:54)
[2018-11-28 21:55] LABS: AMYLASE 94 U/L (25-115); LIPASE 251 U/L (73-393)
[2018-11-28 21:59] LABS: ALBUMIN 3.4 g/dl (3.4-5.0); ALK PHOS 62 U/L (45-117); ANION GAP 8 MMOL/L (8-16); BILIRUBIN,TOTAL 0.2 mg/dL (0.2-1); BLOOD UREA NITROGEN 9 mg/dL (7-18); CHLORIDE 105 mmol/L (98-107); CO2 25 mmol/L (21-32); CREATININE 0.5 mg/dL (0.55-1.3); GLUCOSE,RANDOM 91 mg/dL (74-106); POTASSIUM 4.3 mmol/L (3.5-5.1); SGOT/AST 13 U/L (15-37); SGPT/ALT 15 U/L (13-61); SODIUM 138 mmol/L (136-145); TOT PROT 7.2 g/dl (6.4-8.2)
--- NOTE | 2018-11-28 22:04 | PDOC ---
History of Present Illness - General Chief Complaint: Chest Pain Stated Complaint: CHEST PAIN Time Seen by Provider: 11/28/18 20:55 History Source: Patient Exam Limitations: No Limitations - History of Present Illness Initial Comments: 11/28/18 21:37 38 yo F 10 weeks gestational age with asthma presents to the emergency department with chest pain. Per the patient, she states the chest pain is located in the center sternum without radiation and feels like a sharp sensation. The pain occurs when she takes deep breaths and lays down. Past History - Past Medical History Allergies/Adverse Reactions: Allergies Allergy/AdvReac Type Severity Reaction Status Date / Time No Known Allergies Allergy Verified 11/28/18 20:01 Anemia: Yes Asthma: Yes (last attack 07/2013) Cancer: No Cardiac Disorders: No CVA: No COPD: No CHF: No Dementia: No Diabetes: No GI Disorders: No Disorders: No HTN: Yes (w/ 1st (Gestational)) Hypercholesterolemia: No Liver Disease: No Seizures: No Thyroid Disease: No - Surgical History Orthopedic Surgery: Yes (left ankle surgery) - Reproductive History (#): 6 Para: 5 Cervical CA: No Dysfunctional Uterine Bleeding: No Ectopic : No Endometrial CA: No Polycystic Ovaries: No Tubal Ligation: No - Immunization History Immunization Up to Date: Yes - Suicide/Smoking/Psychosocial Hx Smoking History: Never smoked Have you smoked in the past 12 months: No Information on smoking cessation initiated: No Hx Alcohol Use: No Drug/Substance Use Hx: No Substance Use Type: None Hx Substance Use Treatment: No *Physical Exam - Vital Signs Last Vital Signs Temp Pulse Resp BP Pulse Ox 97.9 F 95 H 19 103/59 L 98 11/28/18 19:45 11/28/18 19:45 11/28/18 19:45 11/28/18 19:45 11/28/18 19:45 ED Treatment Course - LABORATORY CBC & Chemistry Diagram: 11/28/18 21:21 11/28/18 21:21 - ADDITIONAL ORDERS Additional order review: 11/28/18 21:21 RBC 4.47 MCV 85.1 MCHC 32.9 RDW 14.0 MPV 9.1 Neutrophils % 62.4 D Lymphocytes % 27.9 D Monocytes % 7.8 Eosinophils % 1.2 D Basophils % 0.7 Medical Decision Making - Medical Decision Making 11/28/18 22:09 Patient was reassessed after 600 cc of fluids and feels "much better" with a heart rate of 76. After explaining the benefits of an admission for VQ scan to the patient, including the ability to ascertain if there is a blood clot. The patient declines to be admitted for VQ scan and understands the risks associated with not having it. She was given strict return precautions on when to come back. *DC/Admit/Observation/Transfer Diagnosis at time of Disposition: Chest pain Qualifiers: Chest pain type: unspecified Qualified Code(s): R07.9 - Chest pain, unspecified - Discharge Dispostion Disposition: HOME Decision to Admit order: No - Referrals Referrals: Isaiah Dennis MD [Staff Physician] - Benjamin Reid MD [Staff Physician] - [facility] [place] [facility] at [place] [Provider Group] - Patient Instructions Printed Discharge Instructions: DI for Atypical Chest Pain Additional Instructions: you were seen for the evaluation of your chest pain. your EKG and cardiac enzyme levels were within normal limits. We discussed for admission for VQ scan to ascertain with certainty that there is no pulmonary embolism, however you expressed a desire to be discharged and to return to the emergency department if you have worsening symptoms. please continue to take your vitamins. please follow up with your primary medical doctor or the one prescribed to you in 1 week after discharge. In addition, please follow up with the gynaecological oncologist in 72 hours after discharge for follow up care and management. please return to the emergency department if you have worsening symptoms or new concerning symptoms such as fever, pain with urination, vaginal bleeding/discharge, worsening chest pain, inability to breathe, and loss of consciousness. thank you. - Post Discharge Activity Forms/Work/School Notes: Back to Work
[2018-11-28 22:35] LABS: INR 1.02 (0.83-1.09)
--- NOTE | 2018-11-29 15:26 | EKG ---
Test Reason : Blood Pressure : / mmHG Vent. Rate : 087 BPM Atrial Rate : 087 BPM P-R Int : 146 ms QRS Dur : 074 ms QT Int : 362 ms P-R-T Axes : 039 058 052 degrees QTc Int : 435 ms NORMAL SINUS RHYTHM NORMAL ECG NO PREVIOUS ECGS AVAILABLE Confirmed by CALLIE JOYCE MD ([id number]) on 11/29/2018 3:26:33 PM Referred By: Confirmed By:CALLIE JOYCE MD
--- NOTE | 2018-11-29 21:28 | PDOC ---
Documentation entered by Brandee Alas SCRIBE, acting as scribe for Candace Lopez MD. Candace Lopez MD: This documentation has been prepared by the scribe, Brandee Alas SCRIBE, under my direction and personally reviewed by me in its entirety. I confirm that the documentation accurately reflects all work, treatment, procedures, and medical decision making performed by me. Attending Attestation - Resident Resident Name: LupeArley - ED Attending Attestation I have performed the following: I have examined & evaluated the patient, The case was reviewed & discussed with the resident, I agree w/resident's findings & plan - HPI HPI: 11/28/18 21:49 38 year old female , 10 weeks confirmed via ultrasound, history of asthma, gastritis, and right leg DVT in the past, who presents to the ED with complaints of chest pain x1 day. She qualifies her pain as non-localized, sharp and pleuritic. It is worse with deep inspiration and when laying down. It is associated with SOB and nausea, but denies any vomiting, diaphoresis, palpitations or syncope. She reports having experienced these symptoms before with her gastritis. She denies any sick contacts or recent travel. She denies having any routine cardiac testing in the past. Denies any fevers or chills. - Physicial Exam PE: 11/28/18 21:57 GENERAL: Awake, alert, and fully oriented, in no acute distress LUNGS: Breath sounds equal, clear to auscultation bilaterally. No wheezes, and no crackles HEART: Regular rate and rhythm, normal S1 and S2, no murmurs, rubs or gallops ABDOMEN: Soft, nontender, normoactive bowel sounds. No guarding, no rebound. No masses. No CVAT. EXTREMITIES: Normal range of motion, no edema. No erythema or tenderness. NEUROLOGICAL: Moves all extremities. Normal speech. SKIN: Warm, Dry, normal turgor, no rashes or lesions noted. - Medical Decision Making 11/28/18 22:08 Pt's labs are normal. She feels better with 600ml lactated ringers, as well as pepcid and maalox. EKG is done. We explained to patient the small but real risk of PE, that can only be seen with VQ scan or CTA. Pt refusing to stay in the hospital for VQ scan. She iunderstands the risk of PE and . We discussed that she has no Right heart strain on EKG, no tachycardia, no elevated BP, no card enzyme elevation. No other findings suggestive of PE, other than the MSCP and the pleuritic CP, which is very mild and on and off.
== END 2018-11-28 22:44 | disposition home or self-care (01) ==
LOC: JER 19:30
PROC: 3E033GC Introduction of Other Therapeutic Substance into Peripheral Vein, Percutaneous Approach (ICD-10-PCS; principal; 2018-11-28)
DX: O26.891 Other specified pregnancy related conditions, first trimester (principal); R07.89 Other chest pain; Z3A.10 10 weeks gestation of pregnancy; O13.1 Gestational [pregnancy-induced] hypertension without significant proteinuria, first trimester
CPT/HCPCS: 36415; 80053; 82150; 82550; 83690; 84484; 85025; 85610; 93005; 93010; 96365; 99281-25

== ENCOUNTER 2019-06-14 09:45 | Inpatient (IN) | payer OTHER ==
--- NOTE | 2019-06-14 10:56 | HP ---
Past Medical History - Admission Chief Complaint: Postdates History of Present Illness: 39yo @ 41.0wks by LMP c/w gartho, SALVATORE 06/07/19 who presented for IOL. No VB/LOF. No ctx. +FM Preg c/b: AMA, prior C/S followed by 5 VBACs, grand multiparity. 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: No: Alzheimer's, CVA, Dementia, Migraine, Multiple Sclerosis, Peripheral Neuropathy, Parkinson's, Seizure, Syncope, TIA, Vertigo, Other Cardiovascular: No: AFIB, Aneurysm, Aortic Insufficiency, Aortic Stenosis, CAD, CHF, Deep Vein Thrombosis, HTN, Hyperlipdemia, WA, Mitral Insufficiency, Mitral Stenosis, Murmur, Pulmonary Hypertension, Other Pulmonary: Yes: Asthma (last episode 1 week ago, rx inhaler ventolin prn) Gastrointestinal: No: Ascites, Cancer, Constipation, Crohn's Disease, Diverticulitis, Diverticulosis, Esophageal Varices, Gastritis, GERD, GI Bleed, Hemorrhoids, Hiatal Hernia, Inflamatory Bowel Disease, Irritable Bowel Disease, Pancreatitis, Peptic Ulcer Disease, Ulcerative Colitis, Other Hepatobiliary: No: Cirrhosis, Cholelithiasis, Cholecystitis, Choledocholithiasis , Hepatitis A, Hepatitis B, Hepatitis C, Other Renal/: No: Renal Failure, Renal Inusuff, BPH, Cancer, Hematuria, Hemodialysis , Neurogenic Bladder, Renal Calculi, UTI, Other Heme/Onc: Yes: Anemia Infectious Disease: No: AIDS, C-Diff, Herpes Zoster, HIV, MRSA, STD's, Tuberculosis, VREF, Other Psych: No: Addictions, Anxiety, Bipolar, Depression, Panic, Psychosis, Schizophrenia, Other Musculoskeletal: No: Bursitis, Chronic low back pain, Hemiparesis, Hemiplegia, Osteoarthritis, Paraplegia, Other Rheumatology: No: Fibromyalgia, Gout, Lupus, Rheumatoid Arthritis, Sarcoidosis, Vasculitis, Other ENT: No: Allergic Rhinitis, Sinusitis, Other Endocrine: No: Albemarle's Disease, Roscoe's Disease, Diabetes Insipidus, Diabetes Mellitus, Hyperparathyroidism, Hyperthyroidism, Hypothyroidism, Osteopenia, SIADH, Other Dermatology: No: Basal Cell, Cellulitis, Eczema, Melanoma, Psoriasis, Squamous Cell, Other - Past Surgical History Past Surgical History: Yes: Hx Myomectomy: No Hx Transabdominal Cerclage: No - Smoking History Smoking history: Never smoked Have you smoked in the past 12 months: No - Alcohol/Substance Use Hx Alcohol Use: No History of Substance Use: reports: None - Social History Usual Living Arrangement: Yes: With Spouse Do you think of yourself as: Straight/Heterosexual ADL: Independent 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 Loss, Weakness, Other Cardiovascular: denies: No Symptoms, Chest Pain, Edema, Palpitations, Shortness of Breath, Other Respiratory: denies: No Symptoms, Cough, Exercise Intolerance, Hemoptysis, Orthopnea, PND, Snoring, SOB, SOB on Exertion, Wheezing, Other Physical Exam - Maternity Constitutional: Yes: Well Nourished, No Distress, Calm - Abdominal Exam/OB Number of Fetuses: Single Presentation: Vertex Contractions: Yes Regularity: Irregular Intensity: Unaware Monitor Mode: External Heart Rate Location: [facility] Category: I Accelerations: Non-Uniform Decelerations: None - Vaginal Exam/OB Vaginal Bleediing: No Speculum Exam: No Dilatation (cm): 2 Effacement (%): 25 Amniotic Membrane Status: Intact Presentation: Vertex/Position Station: -3 - Physical Exam Edema: No Assessment/Plan 39yo @ 41wks by LMP/sono here for IOL, prior C/S Admitted to L&D NPO, IVFs Admission labs Cat I tracing. Cervix unfavorable. Pt counseled regarding her risk associated with IOL- particularly failed induction, uterine rupture. Discussed mode of induction via AROM. Offered TOLAC with AROM for induction vs elective Repeat . Pt and partner amenable to AROM for IOL and if no progress or spont labor within 2 hours, wants to be re-evaluated for RLTCS Eboni Wei MD
[2019-06-14 11:08] VITALS: BMI 32.9
[2019-06-14] MEDS: ELECTROLYTE-148 SOLN 1,000 ML IV SCH ×2 (11:15→17:50)
[2019-06-14 11:32] LABS: BASO % 0.5 % (0-2.0); EOS % 2.4 % (0-4.5); HEMATOCRIT 35.4 % (32.4-45.2); HEMOGLOBIN 11.6 GM/dL (10.7-15.3); LYMPH % 21.7 % (8-40); MCH 28.5 pg (25.7-33.7); MCHC 32.8 g/dl (32.0-36.0); MEAN CELL VOLUME 86.8 fl (80-96); MEAN PLT VOLUME 9.3 fl (7.5-11.1); MONO % 8.1 % (3.8-10.2); NEUT % 67.3 % (42.8-82.8); PLATELET COUNT 228 K/MM3 (134-434); RBC 4.08 M/mm3 (3.60-5.2); RDW 13.6 % (11.6-15.6); WHITE BLOOD COUNT 8.9 K/mm3 (4.0-10.0)
[2019-06-14 11:46] LABS: INR 1.02 (0.83-1.09)
[2019-06-14 11:49] LABS: ACTIVATED PTT 29.6 SECONDS (25.2-36.5); BLOOD UREA NITROGEN 10.7 mg/dL (7-18); CALCIUM 8.8 mg/dL (8.5-10.1); CREATININE 0.7 mg/dL (0.55-1.3); POTASSIUM 3.6 mmol/L (3.5-5.1)
--- NOTE | 2019-06-14 13:39 | PN ---
Progress Note, Labor Vaginal Exam #1 Labor Exam Date: 06/14/19 Labor Exam Time: 13:37 Heart Rate (range): Cat I Dilatation: 2-3 Effacement (%): 25 Amniotic Membrane Status: Ruptured Presentation: Vertex/Position Station: -3 Remarks: Pt comfortable Cat I tracing Contractions irregular Discussed re-evaluation in 1-2 hours if stable about continuation of IOL Eboni Wei MD
[2019-06-14] MEDS ORDERED: OXYTOCIN 30 UNITS in 0.9% NS 30 UNIT/500 ML INFUS.BAG IVPB ONE (15:15)
[2019-06-14] MEDS ORDERED: OXYTOCIN 30 UNITS in 0.9% NS 30 UNIT/500 ML INFUS.BAG IVPB SCH (15:30)
--- NOTE | 2019-06-14 15:33 | PN ---
Ante-Partal Exam - Subjective Subjective: Patient evaluated for progression of induction Vital Signs: Vital Signs Temperature 97.6 F 06/14/19 15:00 Pulse Rate 101 H 06/14/19 15:00 Respiratory Rate 20 06/14/19 15:00 Blood Pressure 110/72 06/14/19 15:00 O2 Sat by Pulse Oximetry (%) Bleeding: No Headache: No Visual changes: No Right upper quadrant pain: No - Contractions Contractions: Yes Regularity: Irregular Intensity: Unaware Monitor Mode: External - Exam during Labor Variability: Moderate Category: I Monitor Accelerations: Present Monitor Decelerations: Early (sporadic) Exam: Vaginal Dilatation (cm): 3 Effacement (%): 30 Amniotic Membrane Status: Ruptured Nitrazine Test: Positive Amniotic Fluid: Clear Presentation: Vertex Station: -3 - Assessment/Plan Assessment/Plan: 39 y/o @ 41.0wks, prior C/S x1 followed by 5 successful , induction of labor at late term, reassuring status, S/P AROM, inadequate contraction pattern. -Start pitocin -Continuous monitoring
--- NOTE | 2019-06-14 18:07 | PN ---
Ante-Partal Exam - Subjective Subjective: Patient evaluated for progression of labor Vital Signs: Vital Signs Temperature 98.1 F 06/14/19 17:00 Pulse Rate 93 H 06/14/19 17:00 Respiratory Rate 20 06/14/19 17:00 Blood Pressure 95/66 06/14/19 17:00 O2 Sat by Pulse Oximetry (%) Bleeding: No Headache: No Visual changes: No Right upper quadrant pain: No - Contractions Contractions: Yes Regularity: Regular Intensity: Mild/Mod Monitor Mode: External - Exam during Labor Heart Rate: 150 Variability: Moderate Category: II Monitor Accelerations: Present Monitor Decelerations: Variable (sporadic) Exam: Vaginal Dilatation (cm): 3 Effacement (%): 30 Presentation: Vertex Station: -3 Remarks: membranes palpable - Assessment/Plan Assessment/Plan: 39 y/o @ 41.0wks, induction of labor at late term, reassuring status, S/P AROM and pitocin augmentation at 2mU/min, adequate contraction pattern. -continue pitocin -re-evalute accordingly -Consider rupturing forebag
--- NOTE | 2019-06-14 20:21 | PN ---
Ante-Partal Exam - Subjective Subjective: Patient evaluated for progression of labor Vital Signs: Vital Signs Temperature 98.0 F 06/14/19 20:00 Pulse Rate 91 H 06/14/19 20:00 Respiratory Rate 20 06/14/19 20:00 Blood Pressure 102/62 06/14/19 20:00 O2 Sat by Pulse Oximetry (%) Bleeding: No Headache: No Visual changes: No Right upper quadrant pain: No - Contractions Contractions: No Regularity: Regular Intensity: Mild/Mod Monitor Mode: External - Exam during Labor Heart Rate: 145 Variability: Moderate Category: I Monitor Accelerations: Present Monitor Decelerations: None Exam: Vaginal Dilatation (cm): 3 Effacement (%): 25 Amniotic Membrane Status: Ruptured (forebag ruptured and) Amniotic Fluid: Clear (scant) Presentation: Vertex Station: -3 - Assessment/Plan Assessment/Plan: 39 y/o @ 41.0wks, prior C/S with 5 successful , reassuring status, S/P AROM and pitocin augmentation at 2mU/min. -Increase pitocin -Continuous monitoring
[2019-06-14] MEDS ORDERED: FENTANYL/BUPIVACAINE/NS/PF - PCEA - 50 ML DISP.SYRIN EP ONE (21:53)
[2019-06-14] MEDS ORDERED: BUPIVACAINE HCL/PF 2.5 MG/ML - 30 ML VIAL IJ ONE (22:13)
[2019-06-14] MEDS ORDERED: LIDO 2%/EPI 1:200000 PRESRVFRE (20 ML SDVIAL) ONE (22:13)
--- NOTE | 2019-06-14 22:28 | PN ---
Ante-Partal Exam - Subjective Subjective: Patient evaluated prior to epidural evaluation (late entry) Vital Signs: Vital Signs Temperature 98.0 F 06/14/19 22:00 Pulse Rate 107 H 06/14/19 22:00 Respiratory Rate 20 06/14/19 22:00 Blood Pressure 124/68 06/14/19 22:00 O2 Sat by Pulse Oximetry (%) Headache: No Visual changes: No Right upper quadrant pain: No - Contractions Regularity: Regular Intensity: Mod/Strong Monitor Mode: External - Exam during Labor Heart Rate: 140 Variability: Moderate Monitor Accelerations: Present Monitor Decelerations: Early (with mild variables) Exam: Vaginal Dilatation (cm): 5 Effacement (%): 50 Amniotic Membrane Status: Ruptured Amniotic Fluid: Clear Presentation: Vertex Station: -3 Remarks: sutures palpated and asynclitic - Assessment/Plan Assessment/Plan: Patient evaluated for pain. FHT cat II but reassuring. Option of epidural and continuation of induction vs CD discussed. All questions answered and patient decided to proceed with induction -Epidural is ok
--- NOTE | 2019-06-14 22:34 | PN ---
Ante-Partal Exam - Subjective Subjective: Patient re-evaluated immediately prior to epidural placement due to FHT cat II with variable decels. Vital Signs: Vital Signs Temperature 98.0 F 06/14/19 22:00 Pulse Rate 107 H 06/14/19 22:00 Respiratory Rate 20 06/14/19 22:00 Blood Pressure 124/68 06/14/19 22:00 O2 Sat by Pulse Oximetry (%) Bleeding: Yes (bloodly show) Bleeding Description: Mild Headache: No Visual changes: No Right upper quadrant pain: No - Contractions Contractions: Yes Regularity: Regular Monitor Mode: External - Exam during Labor Heart Rate: 145 Variability: Moderate Category: II Monitor Accelerations: Absent Monitor Decelerations: Variable (mild) Exam: Vaginal Dilatation (cm): 8 Effacement (%): 90 Amniotic Membrane Status: Ruptured Amniotic Fluid: Clear Presentation: Vertex Station: -2 Remarks: asynclitic - Assessment/Plan Assessment/Plan: 39 y/o @ 39.2wks, active labor, progressing rapidly, requesting epidural for pain control, FHT cat improved following pitocin decrease. -Epidrual is ok -Continuous FHT monitoring -Keep pitocin at 1mU/min -Re-evaluate following epidural
[2019-06-14] MEDS ORDERED: PHENYLEPHRINE HCL 10 MG/1 ML SINGLE DOSE VIAL ONE (22:44)
[2019-06-14] MEDS ORDERED: OXYTOCIN 20 UNITS in 0.9% NS 20 UNIT/1,000 ML INFUS.BAG IV ONE ×2 (22:50→22:58)
[2019-06-14] MEDS ORDERED: NALOXONE HCL 0.4 MG/ML VIAL IVPUSH PRN (23:06)
[2019-06-14] MEDS ORDERED: FENTANYL/BUPIVACAINE/NS/PF - PCEA - 50 ML DISP.SYRIN EP SCH (23:15)
[2019-06-14] MEDS: OXYTOCIN 20 UNITS in 0.9% NS 20 UNIT/1,000 ML INFUS.BAG IV SCH (23:15)
[2019-06-14] MEDS ORDERED: LIDOCAINE HCL 1% PRESERVATIVE FREE - 30ML VIAL ONE (23:16)
[2019-06-14] MEDS ORDERED: BISACODYL 10 MG SUPP.RECT RC PRN (23:37)
[2019-06-14] MEDS ORDERED: WITCH HAZEL 50% (TUCKS) 40 PAD/JAR PAD TP PRN (23:37)
[2019-06-14] MEDS ORDERED: IBUPROFEN 600 MG TABLET (FP) PO PRN (23:37)
[2019-06-14] MEDS ORDERED: BENZOCAINE 28 GM HEMORRHOIDAL OINTMENT TP PRN (23:37)
[2019-06-14] MEDS ORDERED: BENZOCAINE 20% 57 GM BOTTLE TP PRN (23:37)
--- NOTE | 2019-06-14 23:37 | PN ---
Delivery - Delivery Vaginal Delivery: Vacuum Assist (Vaccum applied appropriately 2+ station due to maternal exhaustion. Vacuum pressure to green zone (450mmHg), no pop-offs and only 1 pull required. 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 It restituted to ANDREW and loose nuchal cord x1 removed. Shoulders delivered without difficulty followed by the rest of the body. Umbilical cord clamped and cut after delay. Samples for gases and blood obtained. Placenta delivered spontaneously and intact. Exam revealed firm fundus and 1st degree perineal laceration. it was repaired with 3.0 polysorb in the standard fashion. Excellent hemostasis and re-approximation achieved. Instrument/sponge count is correct x 2 and confirmed by nurse.
[2019-06-15] MEDS ORDERED: OXYTOCIN 20 UNITS in 0.9% NS 20 UNIT/1,000 ML INFUS.BAG IV ONE (01:50)
[2019-06-15] MEDS: OXYTOCIN 20 UNITS in 0.9% NS 20 UNIT/1,000 ML INFUS.BAG IV SCH (02:00)
[2019-06-15] MEDS: ACETAMINOPHEN 325 MG TABLET (FP) PO PRN ×2 (02:00→22:30)
[2019-06-15] MEDS ORDERED: ACETAMINOPHEN 325 MG TABLET (FP) ONE (02:01)
[2019-06-15] MEDS ORDERED: IBUPROFEN 600 MG TABLET (FP) PO ONE (02:01)
[2019-06-15] MEDS ORDERED: ONDANSETRON 4 MG/2 ML VIAL IVPB PRN (06:01)
[2019-06-15 08:09] LABS: BASO % 0.2 % (0-2.0); EOS % 0.1 % (0-4.5); HEMATOCRIT 33.5 % (32.4-45.2); HEMOGLOBIN 10.9 GM/dL (10.7-15.3); LYMPH % 8.1 % (8-40); MCHC 32.6 g/dl (32.0-36.0); MEAN PLT VOLUME 8.8 fl (7.5-11.1); MONO % 8.2 % (3.8-10.2); NEUT % 83.4 % (42.8-82.8); PLATELET COUNT 208 K/MM3 (134-434); RBC 3.89 M/mm3 (3.60-5.2); RDW 13.7 % (11.6-15.6); WHITE BLOOD COUNT 13.4 K/mm3 (4.0-10.0)
--- NOTE | 2019-06-15 08:55 | PN ---
Post Progress Note - Subjective Subjective: Ambulating, lochia decreased, breast feeding, voiding, nausea and vomiting. She reports similar presentation following previous deliveries. Post Day: 1 Type of Delivery: Vital Signs: Vital Signs Temperature 98.7 F 06/15/19 06:00 Pulse Rate 76 06/15/19 06:00 Respiratory Rate 18 06/15/19 06:00 Blood Pressure 115/68 06/15/19 06:00 O2 Sat by Pulse Oximetry (%) 100 06/15/19 00:30 Breast Exam: Yes: Other (deferred) Uterus: Yes: Fundus Firm Abdomen/GI: Yes: Abdomen soft Lochia, amount: Moderate Extremities: Yes: Calves non-tender Activity: Ambulating - Labs Labs: CBC WBC 13.4 K/mm3 (4.0-10.0) H 06/15/19 07:29 RBC 3.89 M/mm3 (3.60-5.2) 06/15/19 07:29 Hgb 10.9 GM/dL (10.7-15.3) 06/15/19 07:29 Hct 33.5 % (32.4-45.2) 06/15/19 07:29 MCV 86.0 fl (80-96) 06/15/19 07:29 MCH 28.0 pg (25.7-33.7) 06/15/19 07:29 MCHC 32.6 g/dl (32.0-36.0) 06/15/19 07:29 RDW 13.7 % (11.6-15.6) 06/15/19 07:29 Plt Count 208 K/MM3 (134-434) 06/15/19 07:29 MPV 8.8 fl (7.5-11.1) 06/15/19 07:29 Absolute Neuts (auto) 11.2 K/mm3 (1.5-8.0) H 06/15/19 07:29 Neutrophils % 83.4 % (42.8-82.8) H D 06/15/19 07:29 Lymphocytes % 8.1 % (8-40) D 06/15/19 07:29 Monocytes % 8.2 % (3.8-10.2) 06/15/19 07:29 Eosinophils % 0.1 % (0-4.5) D 06/15/19 07:29 Basophils % 0.2 % (0-2.0) 06/15/19 07:29 Nucleated RBC % 0 % (0-0) 06/15/19 07:29 Assessment/Plan 39 y/o S/P on PPD # 1, stable vitals, reporting N/V and IV antiemetic on board, breast feeding and baby doing well. -Continue PP care -Zofran PRN -Anticipate D/C home tomorrow
[2019-06-15] MEDS ORDERED: SENNOSIDES/DOCUSATE COMBO (SENNA PLUS) TABLET (UD) PO PRN (22:00)
--- NOTE | 2019-06-16 08:41 | PN ---
Post Progress Note - Subjective Subjective: asymptomatic Post Day: 2 Type of Delivery: Vital Signs: Vital Signs Temperature 98.2 F 06/15/19 20:40 Pulse Rate 79 06/15/19 20:40 Respiratory Rate 18 06/15/19 20:40 Blood Pressure 105/63 06/15/19 20:40 O2 Sat by Pulse Oximetry (%) 100 06/15/19 00:30 Breast Exam: Yes: Soft, Other (BF). No: Engorged Uterus: Yes: Fundus Firm, Fundus below umbilicus Lochia: Yes: Rubra Lochia, amount: Moderate Extremities: Yes: Calves non-tender Perineum: Yes: Laceration (healing. no perineal soreness) Activity: Ambulating - Labs Labs: CBC WBC 13.4 K/mm3 (4.0-10.0) H 06/15/19 07:29 RBC 3.89 M/mm3 (3.60-5.2) 06/15/19 07:29 Hgb 10.9 GM/dL (10.7-15.3) 06/15/19 07:29 Hct 33.5 % (32.4-45.2) 06/15/19 07:29 MCV 86.0 fl (80-96) 06/15/19 07:29 MCH 28.0 pg (25.7-33.7) 06/15/19 07:29 MCHC 32.6 g/dl (32.0-36.0) 06/15/19 07:29 RDW 13.7 % (11.6-15.6) 06/15/19 07:29 Plt Count 208 K/MM3 (134-434) 06/15/19 07:29 MPV 8.8 fl (7.5-11.1) 06/15/19 07:29 Absolute Neuts (auto) 11.2 K/mm3 (1.5-8.0) H 06/15/19 07:29 Neutrophils % 83.4 % (42.8-82.8) H D 06/15/19 07:29 Lymphocytes % 8.1 % (8-40) D 06/15/19 07:29 Monocytes % 8.2 % (3.8-10.2) 06/15/19 07:29 Eosinophils % 0.1 % (0-4.5) D 06/15/19 07:29 Basophils % 0.2 % (0-2.0) 06/15/19 07:29 Nucleated RBC % 0 % (0-0) 06/15/19 07:29 Problem List - Problems (1) Encounter for care and examination after delivery Code(s): Z39.2 - ENCOUNTER FOR ROUTINE FOLLOW-UP Assessment/Plan stable plan discharge today will discuss option for contraception on pp visit anemia counselled
[2019-06-16] MEDS: ACETAMINOPHEN 325 MG TABLET (FP) PO PRN (09:12)
[2019-06-16 10:18] VITALS: BP 109/57; PULSE 75; TEMP 98.1
--- NOTE | 2019-06-16 14:41 | DS ---
Physical Examination Vital Signs: Vital Signs Temperature 98.1 F 06/16/19 09:00 Pulse Rate 75 06/16/19 09:00 Respiratory Rate 20 06/16/19 09:00 Blood Pressure 109/57 L 06/16/19 09:00 O2 Sat by Pulse Oximetry (%) 100 06/15/19 00:30 Constitutional: Yes: Well Nourished, No Distress, Calm Eyes: Yes: WNL, Conjunctiva Clear, EOM Intact HENT: Yes: WNL, Atraumatic, Normocephalic Neck: Yes: WNL, Supple, Trachea Midline Cardiovascular: Yes: WNL, Regular Rate and Rhythm Respiratory: Yes: WNL, Regular, CTA Bilaterally Gastrointestinal: Yes: WNL, Normal Bowel Sounds Musculoskeletal: Yes: WNL Extremities: Yes: WNL Edema: No Integumentary: Yes: WNL Neurological: Yes: WNL, Alert, Oriented ...Motor Strength: WNL Psychiatric: Yes: WNL Labs: CBC, BMP 06/15/19 07:29 06/14/19 10:35 Discharge Summary Problems reviewed: Yes Reason For Visit: INDUCTION OF LABOR Current Active Problems Encounter for care and examination after delivery (Acute) Procedures: Principal: Vacuum Assisted Vaginal Delivery Hospital Course: Patient presented for induction of labor She had a vacuum assisted vaginal after She had an uncomplicated course She was discharged home on PPD#2 M. MD Sanjuana Condition: Stable - Instructions Diet, Activity, Other Instructions: Discharge Instructions * Out of Bed * * Regular Diet * Landy Care * Avoid sex for 6 weeks * rtc 4-6 weeks for follow up pp visit If you experience excessive bleeding or fever over 101 degrees, call doctor, the clinic or go to the Emergency Room. Referrals: Carlos Sage MD [Staff Physician] - Disposition: HOME - Home Medications Comprehensive Discharge Medication List: Ambulatory Orders Albuterol Sulfate Inhaler - [Ventolin HFA Inhaler -] 2 inh PO Q4H PRN 06/14/19 Pnv No.95/Ferrous Fum/Folic AC [ Vitamin Tablet] 1 each PO DAILY Acetaminophen [Tylenol .Regular Strength -] 650 mg PO Q3H PRN tablet 06/15/19 Benzocaine [Americaine 20% Brethren -] 1 spray TP PRN PRN bottle 06/15/19 Ibuprofen [Motrin -] 200 mg PO Q4H PRN tablet 06/15/19 Witch Dominique 50% (Tucks) [Tucks Pads -] 1 pad TP PRN PRN pad 06/15/19 Ibuprofen 600 mg PO Q6H PRN #30 tablet 06/16/19 95/Iron Fum/Folic/Dha [ + Dha Combo Pack] 1 each PO DAILY #30 combo..pkg 06/16/19
== END 2019-06-16 13:20 | disposition home or self-care (01) | DRG 560 ==
LOC: JLDR 09:45 → J3W 06-15 02:10
PROVIDERS: ADMIT Obstetrics & Gynecology; ATTEND Obstetrics & Gynecology
PROC: 0HQ9XZZ Repair Perineum Skin, External Approach (ICD-10-PCS; principal; 2019-06-14)
PROC: 10E0XZZ Delivery of Products of Conception, External Approach (ICD-10-PCS; 2019-06-14)
PROC: 10D07Z6 Extraction of Products of Conception, Vacuum, Via Natural or Artificial Opening (ICD-10-PCS; 2019-06-14)
DX: O48.0 Post-term pregnancy (principal); O70.0 First degree perineal laceration during delivery; O69.81X0 Labor and delivery complicated by cord around neck, without compression, not applicable or unspecified; O66.5 Attempted application of vacuum extractor and forceps; Z3A.41 41 weeks gestation of pregnancy; Z37.0 Single live birth
CPT/HCPCS: 36415; 36600; 59409; 80048; 82803; 85025; 85610; 85730; 86593; 86850; 86900; 86901

== ENCOUNTER 2022-03-19 04:11 | Day surgery (SDC) | payer OTHER ==
[2022-03-14 09:52] VITALS: BMI 33.5
[2022-03-19] MEDS ORDERED: ROCURONIUM BROMIDE 50 MG/5 ML SYRINGE ONE (07:19)
[2022-03-19] MEDS ORDERED: PROPOFOL 20 ML ONE ×2 (07:19→08:17)
[2022-03-19] MEDS ORDERED: DEXAMETHASONE SOD PHOSPHATE 4 MG/1 ML VIAL ONE (07:19)
[2022-03-19] MEDS ORDERED: LIDOCAINE HCL/PF 2% SDV 5ML VIAL ONE (07:19)
[2022-03-19] MEDS ORDERED: MIDAZOLAM HCL 2 MG/2 ML SINGLE DOSE VIAL ONE (07:19)
[2022-03-19] MEDS ORDERED: BUPIVACAINE HCL/PF 0.5% (5MG/ML) 10 ML VIAL ONE (07:20)
[2022-03-19] MEDS ORDERED: BUPIVACAINE HCL/PF 0.5% (5MG/ML) 10 ML VIAL IJ ONE ×2 (08:46)
[2022-03-19] MEDS ORDERED: ONDANSETRON 4 MG/2 ML VIAL IVPUSH PRN (08:53)
[2022-03-19] MEDS ORDERED: oxyCODONE HCL 5 MG TABLET PO PRN (08:53)
[2022-03-19] MEDS ORDERED: GLYCOPYRROLATE 0.2 MG/1 ML VIAL ONE (09:18)
[2022-03-19] MEDS ORDERED: NEOSTIGMINE METHYLSULFATE 0.5 MG/ML - 10 ML MDV ONE (09:18)
[2022-03-19] MEDS ORDERED: KETOROLAC TROMETHAMINE 30 MG/1 ML VIAL ONE (09:20)
[2022-03-19] MEDS ORDERED: ACETAMINOPHEN INJECTION 100 ML IVPB ONE (09:21)
[2022-03-19 11:43] VITALS: RESP 16
[2022-03-19 13:28] VITALS: BP 108/61; PULSE 89; TEMP 97.6
== END 2022-03-19 13:20 | disposition home or self-care (01) ==
LOC: JASU-SURG 04:11
PROVIDERS: ATTEND Student in an Organized Health Care Education/Training Program
PROC: 0UT74ZZ Resection of Bilateral Fallopian Tubes, Percutaneous Endoscopic Approach (ICD-10-PCS; principal; 2022-03-19 08:00)
DX: Z30.2 Encounter for sterilization (principal)
CPT/HCPCS: 81025; 88305-TC; 94760

== ENCOUNTER 2022-04-29 10:02 | Emergency (ER) | payer OTHER ==
[2022-04-29 10:06] VITALS: BP 124/53; PULSE 93; RESP 18; TEMP 98.2; BMI 33.5
[2022-04-29] MEDS ORDERED: ACETAMINOPHEN 325 MG TABLET (FP) ONE (10:53)
[2022-04-29] MEDS ORDERED: IBUPROFEN 600 MG TABLET (FP) PO ONE ×2 (10:53→11:03)
[2022-04-29] MEDS ORDERED: LIDOCAINE 5% TOPICAL PATCH ONE (10:53)
[2022-04-29] MEDS ORDERED: ACETAMINOPHEN 325 MG TABLET (FP) PO ONE (11:03)
[2022-04-29] MEDS ORDERED: LIDOCAINE 5% TOPICAL PATCH TP ONE (11:03)
[2022-04-29 11:36] LABS: BASO % 0.7 % (0-2.0); EOS % 1.8 % (0-4.5); HEMATOCRIT 36.7 % (32.4-45.2); HEMOGLOBIN 11.5 GM/dL (10.7-15.3); LYMPH % 26.6 % (8-40); MCH 26.6 pg (25.7-33.7); MCHC 31.3 g/dl (32.0-36.0); MEAN PLT VOLUME 8.9 fl (7.5-11.1); MONO % 8.1 % (3.8-10.2); NEUT % 62.8 % (42.8-82.8); PLATELET COUNT 320 10^3/uL (134-434); RBC 4.31 M/mm3 (3.60-5.2); RDW 14.5 % (11.6-15.6); WHITE BLOOD COUNT 9.1 K/mm3 (4.0-10.0)
[2022-04-29 11:50] LABS: ALBUMIN 3.7 g/dl (3.4-5.0); BLOOD UREA NITROGEN 19.3 mg/dL (7-18); CALCIUM 9.3 mg/dL (8.5-10.1)
[2022-04-29 11:53] LABS: CREATININE 0.7 mg/dL (0.55-1.3)
[2022-04-29 11:55] LABS: BILIRUBIN,TOTAL 0.2 mg/dL (0.2-1); TOT PROT 7.5 g/dl (6.4-8.2)
[2022-04-29] MEDS ORDERED: METHOCARBAMOL 500 MG TABLET PO ONE (12:37)
[2022-04-29] MEDS ORDERED: METHOCARBAMOL 500 MG TABLET ONE (12:40)
[2022-04-29] MEDS ORDERED: DEXAMETHASONE SOD PHOSPHATE 10 MG/1 ML VIAL IVPUSH ONE (13:43)
[2022-04-29] MEDS ORDERED: DEXAMETHASONE SOD PHOSPHATE 10 MG/1 ML VIAL ONE (13:48)
[2022-04-29] MEDS ORDERED: LIDOCAINE PATCH REMOVAL MC SCH (22:00)
== END 2022-04-29 14:41 | disposition home or self-care (01) ==
LOC: JER 10:02
PROC: 3E0333Z Introduction of Anti-inflammatory into Peripheral Vein, Percutaneous Approach (ICD-10-PCS; principal; 2022-04-29)
DX: M54.6 Pain in thoracic spine (principal)
CPT/HCPCS: 36415; 71046-TC-FY; 73030-TC-LT-FY; 80053; 84703; 85025; 85379; 99285-25; J1100

== ENCOUNTER 2022-12-31 21:21 | Emergency (ER) | payer OTHER ==
[2022-12-31 21:46] VITALS: RESP 18; BMI 33.5
[2023-01-01] MEDS ORDERED: IBUPROFEN 600 MG TABLET (FP) PO ONE ×2 (00:42)
[2023-01-01 02:21] VITALS: BP 106/64; PULSE 70; TEMP 98.1
== END 2023-01-01 03:10 | disposition home or self-care (01) ==
LOC: JER 21:21 → JERFT 21:21 → JER 01-01 03:10
DX: S50.01XA Contusion of right elbow, initial encounter (principal); S80.00XA Contusion of unspecified knee, initial encounter; S93.401A Sprain of unspecified ligament of right ankle, initial encounter; M25.561 Pain in right knee; M25.562 Pain in left knee; M25.571 Pain in right ankle and joints of right foot; M25.521 Pain in right elbow; W01.0XXA Fall on same level from slipping, tripping and stumbling without subsequent striking against object, initial encounter; Y93.9 Activity, unspecified; Y92.009 Unspecified place in unspecified non-institutional (private) residence as the place of occurrence of the external cause
CPT/HCPCS: 73070-TC-RT-FY; 73562-TC-LT-FY; 73562-TC-RT-FY; 73610-TC-RT-FY; 73630-TC-RT-FY; 99284-25

== ENCOUNTER 2024-05-28 14:14 | Emergency (ER) | payer OTHER ==
[2024-05-28 14:35] VITALS: BP 101/62; PULSE 84; RESP 18; TEMP 98.4; BMI 36.0
[2024-05-28] MEDS ORDERED: LIDOCAINE HCL 2% (20ML MULTI-DOSE VIAL) ONE (16:41)
[2024-05-28] MEDS ORDERED: ACETAMINOPHEN 500 MG TABLET (FP) ONE (16:41)
[2024-05-28] MEDS ORDERED: DIPHTH,PERTUSS(ACELL),TET 0.5 ML DISP.SYRIN IM ONE (16:42)
[2024-05-28] MEDS: LIDOCAINE HCL 2% (20ML MULTI-DOSE VIAL) SQ STA (16:46)
[2024-05-28] MEDS: ACETAMINOPHEN 500 MG TABLET (FP) PO ONE (16:46)
[2024-05-28] MEDS: DIPHTH,PERTUSS(ACELL),TET 0.5 ML DISP.SYRIN IM ONE (16:46)
== END 2024-05-28 17:15 | disposition home or self-care (01) ==
LOC: JERFT 14:14 → JER 14:14 → JERFT 17:15
PROC: 0XQPXZZ Repair Left Index Finger, External Approach (ICD-10-PCS; principal; 2024-05-28)
PROC: 3E0234Z Introduction of Serum, Toxoid and Vaccine into Muscle, Percutaneous Approach (ICD-10-PCS; 2024-05-28)
DX: S61.211A Laceration without foreign body of left index finger without damage to nail, initial encounter (principal); X58.XXXA Exposure to other specified factors, initial encounter; Z23 Encounter for immunization
CPT/HCPCS: 12001-25; 90471; 90715; 99284-25